=== PATIENT | male | born 1975 | race Two or more races ===

== ENCOUNTER 2024-06-04 11:33 | Inpatient (IN) | payer OTHER ==
[~2024-06-04] VITALS: Ht 185.4 cm; Wt 90.3 kg
[2024-06-04] MEDS ORDERED: DICY20TA PO (12:19)
[2024-06-04] MEDS ORDERED: TYLENOL325 MG PO (12:19)
[2024-06-04] MEDS ORDERED: GAS RELIEF80 MG PO (12:20)
[2024-06-04] MEDS ORDERED: 0.9 % SODIUM CHLORIDE 1,000 ML IV STA (13:10)
[2024-06-04] MEDS ORDERED: ONDANSETRON HCL 2 MG/ML VIAL IV STA (13:10)
[2024-06-04 13:34] LABS: HEMATOCRIT 42.7 % (39.0-48.0); HEMOGLOBIN 14.1 g/dL (13-16.00); MEAN CELL VOLUME 86.2 fL (80.0-100.00); MEAN CORPUSCULAR HEMOGLOBIN 28.5 pg (27.00-32.0); MEAN CORPUSCULAR HGB CONC 33.1 g/dl (32.0-36.0); PLATELET COUNT 412 K/uL (150-450); RED BLOOD COUNT 4.95 M/uL (4.00-6.00); RED CELL DISTRIBUTION WIDTH 14.5 % (11.5-14.5)
[2024-06-04 13:53] LABS: INR 1.12; PARTIAL THROMBOPLASTIN TIME 26.7 SECONDS (22.0-34.0); PROTHROMBIN TIME 12.1 SECONDS (9.0-11.5)
[2024-06-04 14:01] LABS: CALCIUM 8.8 mg/dL (8.5-10.1); CREATININE SERUM 0.58 mg/dL (0.70-1.30); GFR 147.71; POTASSIUM 3.32 mEq/L (3.5-5.1)
[2024-06-04] MEDS ORDERED: FAMOTIDINE/PF 20 MG/2 ML VIAL IV ONE (14:15)
[2024-06-04 15:59] LABS: PH,URINE 5.5 (5.0-8.0); URINE APPEARANCE Clear; URINE BILIRRUBIN Small (NEGATIVE); URINE BLOOD Negative; URINE COLOR Dark Yellow; URINE GLUCOSE Negative (NEGATIVE); URINE LEUKOCYTE Negative; URINE NITRATE Negative; URINE PROTEIN 30 (NEGATIVE)
[2024-06-04 16:03] LABS: URINE BACTERIA 11.3 uL (0.0-1933); URINE EPITHELIAL CELLS 4.1 uL (0.0-38.8); URINE RBC 3.9 uL (0.0-20.8); URINE WBC 2.4 uL (0.0-23.2)
[2024-06-04 16:05] LABS: URINE KETONE 40 (NEGATIVE)
[2024-06-04] MEDS ORDERED: 0.9 % SODIUM CHLORIDE 1,000 ML IV SCH (19:45)
[2024-06-04] MEDS ORDERED: ONDANSETRON HCL 4 MG in 0.9 % SODIUM CHLORIDE 50 ML IV PRN (19:45)
[2024-06-04] MEDS ORDERED: ACETAMINOPHEN 500 MG GEL..CAP PO PRN (19:45)
[2024-06-04] MEDS ORDERED: LIDOCAINE HCL 1%/EPINEPHRINE 20ML VIAL IJ ONE (22:30)
[2024-06-04] MEDS ORDERED: CIPROFLOXACIN IN 5 % DEXTROSE 400 MG/200 ML PIGGYBAG IV ONE (22:30)
[2024-06-04] MEDS ORDERED: BUPIVACAINE HCL/PF 0.25% 30ML VIAL InF ONE (22:30)
[2024-06-04] MEDS ORDERED: METRONIDAZOLE/SODIUM CHLORIDE 500 MG/100 ML PIGGYBACK IV ONE ×2 (22:30)
[2024-06-04] MEDS ORDERED: MORPHINE SULFATE 4 MG/ML CARTRIDGE IV PRN (23:15)
[2024-06-04] MEDS ORDERED: RINGERS SOLUTION,LACTATED 1,000 ML IV SCH (23:15)
[2024-06-05] MEDS ORDERED: KETOROLAC TROMETHAMINE 30 MG VIAL IM SCH
[2024-06-05] MEDS ORDERED: PIPERACILLIN/TAZOBACTAM SODIUM 3.375 GM in 0.9 % SODIUM CHLORIDE 100 ML IV SCH
[2024-06-05] MEDS ORDERED: GABAPENTIN 300 MG CAPSULE PO SCH (01:00)
[2024-06-05 06:13] LABS: HEMATOCRIT 38.4 % (39.0-48.0); HEMOGLOBIN 12.4 g/dL (13-16.00); MEAN CELL VOLUME 85.9 fL (80.0-100.00); MEAN CORPUSCULAR HEMOGLOBIN 27.7 pg (27.00-32.0); MEAN CORPUSCULAR HGB CONC 32.2 g/dl (32.0-36.0); PLATELET COUNT 392 K/uL (150-450); RED BLOOD COUNT 4.47 M/uL (4.00-6.00); RED CELL DISTRIBUTION WIDTH 14.6 % (11.5-14.5)
[2024-06-05] MEDS ORDERED: ONDANSETRON HCL 2 MG/ML VIAL IV PRN (06:30)
[2024-06-05 07:26] LABS: ALBUMIN 2.2 gm/dL (3.4-5.0); CALCIUM 8.3 mg/dL (8.5-10.1); CREATININE SERUM 0.62 mg/dL (0.70-1.30); GFR 136.76; MAGNESIUM 1.8 mg/dL (1.8-2.4); PHOSPHOROUS 2.9 mg/dL (2.5-4.9); POTASSIUM 4.42 mEq/L (3.5-5.1)
[2024-06-05] MEDS ORDERED: FAMOTIDINE/PF 20 MG/2 ML VIAL IV SCH (09:00)
[2024-06-05] MEDS ORDERED: FAMOTIDINE/PF 20 MG in 0.9 % SODIUM CHLORIDE 8 ML IV PUSH SCH (09:00)
[2024-06-05] MEDS ORDERED: ENOXAPARIN SODIUM 40 MG/0.4 ML SYRINGE SUBCUTANEO SCH (17:00)
[2024-06-05 17:26] VITALS: BP 96/67
[2024-06-05 22:08] VITALS: BP 91/55
[2024-06-06 02:31] VITALS: BP 90/53
[2024-06-06 08:32] VITALS: BP 91/55; O2SAT 96
[2024-06-06 11:33] LABS: HEMATOCRIT 35.5 % (39.0-48.0); MEAN CORPUSCULAR HEMOGLOBIN 29.1 pg (27.00-32.0); MEAN CORPUSCULAR HGB CONC 33.9 g/dl (32.0-36.0); PLATELET COUNT 298 K/uL (150-450); RED BLOOD COUNT 4.12 M/uL (4.00-6.00); RED CELL DISTRIBUTION WIDTH 14.9 % (11.5-14.5)
[2024-06-06 12:22] LABS: HEMATOCRIT 36.1 % (39.0-48.0); HEMOGLOBIN 11.9 g/dL (13-16.00); MEAN CELL VOLUME 87.3 fL (80.0-100.00); MEAN CORPUSCULAR HEMOGLOBIN 28.9 pg (27.00-32.0); MEAN CORPUSCULAR HGB CONC 33.1 g/dl (32.0-36.0); PLATELET COUNT 320 K/uL (150-450); RED BLOOD COUNT 4.14 M/uL (4.00-6.00); RED CELL DISTRIBUTION WIDTH 14.7 % (11.5-14.5)
[2024-06-06 12:22] LABS: CALCIUM 7.9 mg/dL (8.5-10.1); CREATININE SERUM 0.85 mg/dL (0.70-1.30); GFR 95.03; POTASSIUM 3.83 mEq/L (3.5-5.1)
== END 2024-06-06 17:07 | disposition home or self-care (01) | DRG 331 ==
LOC: ER 11:34 → SEC-K 19:43 → O/R 06-05 06:50 → MEDI 06-05 11:32
PROVIDERS: Emergency Medicine; Student in an Organized Health Care Education/Training Program; ADMIT Internal Medicine; ATTEND Internal Medicine
PROC: BW21YZZ Computerized Tomography (CT Scan) of Abdomen and Pelvis using Other Contrast (ICD-10-PCS; 2024-06-04)
PROC: 0D1L0Z4 Bypass Transverse Colon to Cutaneous, Open Approach (ICD-10-PCS; principal; 2024-06-04 22:00)
DX: K56.609 Unspecified intestinal obstruction, unspecified as to partial versus complete obstruction (principal); K56.601 Complete intestinal obstruction, unspecified as to cause; K63.89 Other specified diseases of intestine; E87.6 Hypokalemia

== ENCOUNTER 2024-06-28 12:23 | Inpatient (IN) | payer OTHER ==
[~2024-06-28] VITALS: Ht 188 cm; Wt 81.6 kg
[~2024-06-28 12:23] MED LIST: DICY20TA PO; GAS RELIEF80 MG PO; TYLENOL325 MG PO
--- NOTE | 2024-06-28 12:50 | NUR ---
PTE REFIERE CANCER DE COLON CON COLOCTOMIA DESDE HAC 2 SEMANAS CON SANGRADO RECTAL Y DOLOR Y SECRECIONES TIPO PUS POR LA COLOCTOMIA. SE LE BLANCA S/V Y SE ACOMODA EN CHRISTINA.
[2024-06-28] MEDS ORDERED: 0.9 % SODIUM CHLORIDE 1,000 ML IV STA (12:55)
[2024-06-28 13:28] LABS: HEMATOCRIT 38.8 % (39.0-48.0); HEMOGLOBIN 12.9 g/dL (13-16.00); MEAN CELL VOLUME 84.3 fL (80.0-100.00); MEAN CORPUSCULAR HEMOGLOBIN 27.9 pg (27.00-32.0); MEAN CORPUSCULAR HGB CONC 33.1 g/dl (32.0-36.0); PLATELET COUNT 336 K/uL (150-450); RED BLOOD COUNT 4.61 M/uL (4.00-6.00); RED CELL DISTRIBUTION WIDTH 14.6 % (11.5-14.5)
--- NOTE | 2024-06-28 13:30 | NUR ---
PTE ALERTA Y ORIENTADO X3, RN TORRES EDUCA A PTE SOBRE TX MEDICO, EL MISMO REFIERE ENTENDER. SE TITA MUESTRAS DE LAB BAJO MEDIDAS ASEPTICAS Y SE COLOCAN IV FLUIDS, SE HACE ENTREGA DE CONTRASTES PO PARA ESTUDIO PENDIENTE.
[2024-06-28 13:42] LABS: CALCIUM 8.8 mg/dL (8.5-10.1); CREATININE SERUM 0.73 mg/dL (0.70-1.30); GFR 113.27; POTASSIUM 4.33 mEq/L (3.5-5.1)
[2024-06-28 15:34] LABS: PH,URINE 5.5 (5.0-8.0); URINE APPEARANCE Clear; URINE BILIRRUBIN Negative (NEGATIVE); URINE BLOOD Negative; URINE COLOR Yellow; URINE GLUCOSE Negative (NEGATIVE); URINE KETONE Negative (NEGATIVE); URINE LEUKOCYTE Negative; URINE NITRATE Negative; URINE PROTEIN Negative (NEGATIVE); URINE UROBILINOGEN 0.2 E.U./dl
[2024-06-28 15:50] LABS: URINE BACTERIA 0 uL (0.0-1933); URINE EPITHELIAL CELLS 0.6 uL (0.0-38.8); URINE RBC 1.2 uL (0.0-20.8); URINE WBC 0.4 uL (0.0-23.2)
[2024-06-28] MEDS ORDERED: PIPERACILLIN/TAZOBACTAM SODIUM 3.375 GM in DEXTROSE 5 % IN WATER 100 ML IV SCH (20:22)
[2024-06-28] MEDS ORDERED: ACETAMINOPHEN 500 MG GEL..CAP PO PRN (20:30)
[2024-06-28] MEDS ORDERED: MEPERIDINE HCL/PF 25 MG/ML VIAL IM PRN (20:30)
[2024-06-28] MEDS ORDERED: 0.9 % SODIUM CHLORIDE 1,000 ML IV SCH (20:30)
[2024-06-28] MEDS ORDERED: ONDANSETRON HCL 4 MG in 0.9 % SODIUM CHLORIDE 50 ML IV PRN (20:30)
[2024-06-28 21:16] VITALS: BP 102/68
[2024-06-28 21:27] LABS: INR 1.1; PARTIAL THROMBOPLASTIN TIME 25.6 SECONDS (22.0-34.0); PROTHROMBIN TIME 11.9 SECONDS (9.0-11.5)
[2024-06-29 01:47] VITALS: BP 96/59; O2SAT 96
[2024-06-29 08:48] VITALS: BP 100/64
[2024-06-29] MEDS ORDERED: FAMOTIDINE/PF 20 MG in 0.9 % SODIUM CHLORIDE 8 ML IV PUSH SCH (09:00)
[2024-06-29 16:20] VITALS: BP 109/71
[2024-06-30 01:46] VITALS: BP 95/60; O2SAT 97
[2024-06-30 09:03] VITALS: BP 111/63; O2SAT 99
== END 2024-06-30 11:28 | disposition home or self-care (01) | DRG 378 ==
LOC: ER 12:25 → MEDJ 21:13
PROVIDERS: Emergency Medicine; General Practice; ADMIT Internal Medicine; ATTEND Internal Medicine
PROC: BW21YZZ Computerized Tomography (CT Scan) of Abdomen and Pelvis using Other Contrast (ICD-10-PCS; principal; 2024-06-28)
DX: K62.5 Hemorrhage of anus and rectum (principal); K90.49 Malabsorption due to intolerance, not elsewhere classified; K52.9 Noninfective gastroenteritis and colitis, unspecified; Z93.3 Colostomy status; Z85.038 Personal history of other malignant neoplasm of large intestine; Z87.891 Personal history of nicotine dependence

== ENCOUNTER 2024-07-03 12:55 | Emergency (ER) | payer OTHER ==
[~2024-07-03] VITALS: Ht 188 cm; Wt 81.6 kg
[2024-07-03 14:40] LABS: HEMATOCRIT 41.9 % (39.0-48.0); HEMOGLOBIN 13.7 g/dL (13-16.00); MEAN CELL VOLUME 84.9 fL (80.0-100.00); MEAN CORPUSCULAR HEMOGLOBIN 27.8 pg (27.00-32.0); MEAN CORPUSCULAR HGB CONC 32.8 g/dl (32.0-36.0); PLATELET COUNT 354 K/uL (150-450); RED BLOOD COUNT 4.94 M/uL (4.00-6.00)
[2024-07-03 14:47] LABS: ERYTHROCYTE SEDIMENTATION RATE 28 mm/hr
[2024-07-03 14:53] LABS: CALCIUM 8.9 mg/dL (8.5-10.1); CREATININE SERUM 0.87 mg/dL (0.70-1.30); GFR 92.51; POTASSIUM 3.95 mEq/L (3.5-5.1)
[2024-07-03] MEDS ORDERED: PEPCID AC20 MG PO (17:20)
[2024-07-03] MEDS ORDERED: LEVOFLOXACIN500 MG PO (17:20)
[2024-07-03 17:24] VITALS: BP 130/70; O2SAT 100
== END 2024-07-03 17:25 | disposition home or self-care (01) ==
LOC: ER 12:56
PROVIDERS: General Practice
DX: L03.116 Cellulitis of left lower limb (principal); R60.0 Localized edema; Z85.89 Personal history of malignant neoplasm of other organs and systems; Z88.2 Allergy status to sulfonamides; Z91.013 Allergy to seafood

== ENCOUNTER 2024-07-26 07:52 | Outpatient (CLI) | payer OTHER ==
[~2024-07-26 07:52] MED LIST changes: +LEVOFLOXACIN500 MG PO; +PEPCID AC20 MG PO
== END 2024-07-26 08:00 | disposition home or self-care (01) ==
LOC: TOM 07:52
DX: C18.9 Malignant neoplasm of colon, unspecified (principal); R10.84 Generalized abdominal pain

== ENCOUNTER 2025-02-13 21:41 | Emergency (ER) | payer OTHER ==
[~2025-02-13] VITALS: Ht 188 cm; Wt 94.8 kg
[2025-02-14] MEDS ORDERED: FAMOTIDINE/PF 20 MG/2 ML VIAL IV PUSH STA (00:51)
[2025-02-14] MEDS ORDERED: PROMETHAZINE HCL 50 MG/ML AMPUL IM STA (00:51)
[2025-02-14] MEDS ORDERED: MORPHINE SULFATE 4 MG/ML VIAL IV STA (00:52)
[2025-02-14] MEDS ORDERED: PROMETHAZINE HCL 50 MG/ML AMPUL IM ONE (00:55)
[2025-02-14] MEDS ORDERED: FAMOTIDINE/PF 20 MG/2 ML VIAL ONE (00:56)
[2025-02-14] MEDS ORDERED: 0.9 % SODIUM CHLORIDE 1,000 ML IV ONE (01:00)
[2025-02-14] MEDS ORDERED: MORPHINE SULFATE 2 MG/ML SYRINGE IV ONE (01:15)
[2025-02-14 01:28] LABS: BASO % 0.6 % (0.1-1.2); EOS # 0.43 (0.04-0.54); EOS % 4.3 % (0.7-7.0); HEMATOCRIT 43.8 % (40.1-51.0); HEMOGLOBIN 14.7 g/dL (13.7-17.5); LYMPH # 2.65 (1.18-3.74); LYMPH % 26.3 % (19.3-53.1); MEAN CORPUSCULAR HEMOGLOBIN 29.4 pg (25.6-32.2); MONO % 10.9 % (4.7-12.5); NEUT # 5.82 (1.56-6.13); NEUT % 57.8 % (34.0-71.1); PLATELET COUNT 345 K/uL (163-369); RED CELL DISTRIBUTION WIDTH 15.5 % (11.6-14.4)
[2025-02-14 01:53] LABS: INR 1.13; PARTIAL THROMBOPLASTIN TIME 25.9 SECONDS (22.0-34.0); PROTHROMBIN TIME 12.2 SECONDS (9.0-11.5)
[2025-02-14 01:59] LABS: ALBUMIN 3.7 gm/dL (3.4-5.0); BILIRUBIN TOTAL 0.52 mg/dL (0.3-1.2); BILIRUBIN,CONJUGATED 0.11 mg/dL (0.0-0.2); BILIRUBIN,UNCONJUGATED 0.41 mg/dL (0.0-0.6); CALCIUM 9.3 mg/dL (8.5-10.1); CREATININE SERUM 0.9 mg/dL (0.70-1.30); GFR 88.61; GLOBULINA 4.3 G/DL (2.4-3.5); POTASSIUM 3.75 mEq/L (3.5-5.1)
[2025-02-14 04:01] LABS: PH,URINE 5.5 (5.0-8.0); URINE APPEARANCE Clear; URINE BILIRRUBIN Negative (NEGATIVE); URINE BLOOD Negative; URINE COLOR Yellow; URINE GLUCOSE Negative (NEGATIVE); URINE KETONE Negative (NEGATIVE); URINE LEUKOCYTE Negative; URINE NITRATE Negative; URINE PROTEIN Negative (NEGATIVE); URINE UROBILINOGEN 0.2 E.U./dl
[2025-02-14 04:07] LABS: URINE BACTERIA 3.6 uL (0.0-1933); URINE EPITHELIAL CELLS 0.4 uL (0.0-38.8); URINE RBC 0.7 uL (0.0-20.8); URINE WBC 0.3 uL (0.0-23.2)
[2025-02-14] MEDS ORDERED: BARIUM SULFATE 450 ML ORAL.SUSP PO ONE (05:00)
== END 2025-02-14 13:10 | disposition home or self-care (01) ==
LOC: ER 21:46
PROVIDERS: General Practice
DX: R10.9 Unspecified abdominal pain (principal); Z85.038 Personal history of other malignant neoplasm of large intestine; Z93.3 Colostomy status; Z88.2 Allergy status to sulfonamides; Z91.013 Allergy to seafood; Z88.1 Allergy status to other antibiotic agents; C18.9 Malignant neoplasm of colon, unspecified
CPT/HCPCS: 36415; 74177; Q9965

== ENCOUNTER 2025-04-23 14:27 | Emergency (ER) | payer OTHER ==
[~2025-04-23] VITALS: Ht 175.3 cm; Wt 91.2 kg
[2025-04-23 15:58] LABS: BASO % 0.5 % (0.1-1.2); EOS # 0.36 (0.04-0.54); EOS % 4.7 % (0.7-7.0); LYMPH # 1.98 (1.18-3.74); LYMPH % 25.7 % (19.3-53.1); MEAN PLATELET VOLUME 10.80 fl (9.4-12.4); MONO # 0.56 (0.24-0.82); MONO % 7.3 % (4.7-12.5); NEUT # 4.73 (1.56-6.13); NEUT % 61.5 % (34.0-71.1); RED CELL DISTRIBUTION WIDTH 14.1 % (11.6-14.4)
[2025-04-23 16:42] LABS: BUN CREA RATIO 18.0 (7.0-25.0); CREATININE SERUM 0.87 mg/dL (0.70-1.30); GFR 92.15; GLUCOSE FASTING 143.0 mg/dL (65-100); OSMOLALITY SERUM 287.0 MOSM/KG (275-295)
[2025-04-23] MEDS ORDERED: ACETAMINOPHEN 500 MG GEL..CAP PO STA (17:27)
[2025-04-23 17:32] LABS: URINE APPEARANCE Clear; URINE BILIRRUBIN Negative (NEGATIVE); URINE BLOOD Negative; URINE COLOR Dark Yellow; URINE GLUCOSE Negative (NEGATIVE); URINE KETONE Trace (NEGATIVE); URINE LEUKOCYTE Negative; URINE NITRATE Negative; URINE PROTEIN Negative (NEGATIVE); URINE UROBILINOGEN 1.0 E.U./dl
[2025-04-23 17:33] LABS: URINE EPITHELIAL CELLS 1.8 uL (0.0-38.8); URINE RBC 4.1 uL (0.0-20.8); URINE WBC 2.6 uL (0.0-23.2)
[2025-04-23 17:35] LABS: URINE BACTERIA 2.3 uL (0.0-1933); URINE CAST 0.00 uL (0.0-1.40)
== END 2025-04-23 20:03 | disposition home or self-care (01) ==
LOC: ER 14:27
PROVIDERS: Emergency Medicine
DX: K59.00 Constipation, unspecified (principal); R10.9 Unspecified abdominal pain; Z88.2 Allergy status to sulfonamides; Z88.1 Allergy status to other antibiotic agents; Z91.013 Allergy to seafood; Z93.3 Colostomy status
CPT/HCPCS: 36415; 74177; Q9965

== ENCOUNTER 2025-05-12 17:34 | Emergency (ER) | payer OTHER ==
[~2025-05-12] VITALS: Ht 188 cm; Wt 88.9 kg
[2025-05-12] MEDS ORDERED: CLINDAMYCIN PHOSPHATE 150 MG/ML (900mg) ONE (18:44)
[2025-05-12] MEDS ORDERED: CLINDAMYCIN PHOSPHATE 150 MG/ML (600mg) IV ONE (18:45)
[2025-05-12] MEDS ORDERED: ACETAMINOPHEN WITH CODEINE 1 UDTAB TABLET PO ONE (18:45)
== END 2025-05-12 20:45 | disposition home or self-care (01) ==
LOC: ER 18:28
DX: K04.7 Periapical abscess without sinus (principal); Z88.1 Allergy status to other antibiotic agents; Z88.2 Allergy status to sulfonamides; Z91.013 Allergy to seafood

== ENCOUNTER 2025-05-30 08:04 | Outpatient (CLI) | payer OTHER | END 2025-05-30 08:14 | disposition home or self-care (01) | LOC: TOM 08:04 | DX: K57.32 Diverticulitis of large intestine without perforation or abscess without bleeding (principal); Z93.3 Colostomy status ==